=== PATIENT | female | born 1995 | race Caucasian/White ===

== ENCOUNTER 2017-03-27 15:34 | Inpatient (IN) | payer OTHER, MEDICAID ==
[2017-03-27] MEDS ORDERED: Sodium Chloride 0.9% 10 ML Syringe FLUSH PRN (15:55)
[2017-03-27] MEDS ORDERED: Oxytocin/Lactated Ringers 10 UNIT/1,000 ML BAG IV SCH ×2 (16:00)
[2017-03-27] MEDS: Lactated Ringers 1,000 ML IV SCH ×6 (16:26→22:52)
--- NOTE | 2017-03-27 16:57 | PCM.LDHP ---
L&D History of Present Illness - General Date of Service: 03/27/17 Admit Problem/Dx: Patient Status Order with Admit Dx/Problem 03/27/17 15:55 Patient Status [ADT] Routine Admission Diagnosis/Problem Admission Diagnosis/Problem Source of Information: Patient History Limitations: Reports: No Limitations - History of Present Illness Introduction:: Patient is a 21 y/o at 37 0/7 wks who presented to clinic earlier today for concerns of possible leakage. Amnisure done in clinic today was positive. Has been having some on and off again contractions. Otherwise doing well. Last notable for PPROM with eventual delivery around 32 weeks. - Related Data Allergies/Adverse Reactions: Allergies Allergy/AdvReac Type Severity Reaction Status Date / Time adhesive Allergy Blisters Verified 03/07/17 18:37 BANDAIDES Allergy Severe Burning Uncoded 03/07/17 18:37 Home Medications: Home Meds Vit 90/Iron Fum/Folic [ Formula] 1 each PO DAILY 10/25/14 [ History] Citalopram [Celexa] 20 mg PO DAILY 03/27/17 [History] Past Medical History APPLICATIONS SUPPORT LEAD History: Reports: : 2 Para: 1 LMP (Approximate): Psychiatric History: Reports: Anxiety, Depression - Past Surgical History HEENT Surgical History: Reports: Oral Surgery (tooth extraction) Social & Family History - Tobacco Use Smoking Status *Q: Never Smoker - Alcohol Use Alcohol Use History: No - Recreational Drug Use Recreational Drug Use: Yes Recreational Drug Type: Reports: Marijuana/Hashish (through Feb 2014) H&P Review of Systems - Review of Systems: Review Of Systems: See Below General: Reports: No Symptoms Pulmonary: Reports: No Symptoms Cardiovascular: Reports: No Symptoms Gastrointestinal: Reports: No Symptoms Genitourinary: Reports: No Symptoms Musculoskeletal: Reports: No Symptoms L&D Exam - Exam Exam: See Below - Vital Signs Weight: 130 kg - OB Specific Contraction Intensity: Mild to Moderate Movement: Active Heart Tones: Present Heart Tones per Min: 140 Heart Rate (FHR) Variability: Moderate (6-25 bmp) Presentation: Vertex - Maguire Score Maguire Score Cervix Position: Anterior Maguire Score Consistency: Soft Maguire Score Effacement: >80% Maguire Score Dilation: 1-2 cm Maguire Score 's Station: -3 Maguire Score Total: 8 - Exam General: Alert, Oriented, Cooperative Lungs: Clear to Auscultation, Normal Respiratory Effort Cardiovascular: Regular Rate, Regular Rhythm GI/Abdominal Exam: Soft, Non-Tender Genitourinary: Normal external exam Extremities: Normal Inspection Skin: Warm, Dry, Intact - Patient Data Lab Results Last 24 hrs: Laboratory Results - last 24 hr 03/27/17 Range/Units 16:30 WBC 9.53 (3.98-10.04) K/mm3 RBC 4.40 (3.98-5.22) M/mm3 Hgb 13.4 (11.2-15.7) gm/L Hct 39.2 (34.1-44.9) % MCV 89.1 (79.4-94.8) fl MCH 30.5 (25.6-32.2) pg MCHC 34.2 (32.2-35.5) g/dl RDW Std Deviation 42.4 (36.4-46.3) fL Plt Count 191 (182-369) K/mm3 MPV 12.3 (9.4-12.3) fl Neut % (Auto) 62.2 (34.0-71.1) % Lymph % (Auto) 29.4 (19.3-51.7) % [place] % (Auto) 7.5 (4.7-12.5) % Eos % (Auto) 0.6 L (0.7-5.8) Baso % (Auto) 0.2 (0.1-1.2) % Neut # (Auto) 5.93 (1.56-6.13) K/mm3 Lymph # (Auto) 2.80 (1.18-3.74) K/mm3 [place] # (Auto) 0.71 H (0.24-0.36) K/mm3 Eos # (Auto) 0.06 (0.04-0.36) K/mm3 Baso # (Auto) 0.02 (0.01-0.08) K/mm3 Result Diagrams: 03/27/17 16:30 - Problem List (1) 37 weeks gestation of SNOMED Code(s): 41858993 ICD Code: Z3A.37 - 37 WEEKS GESTATION OF Status: Acute Current Visit: Yes (2) BMI 50.0-59.9, adult SNOMED Code(s): 702443194 ICD Code: Z68.43 - BODY MASS INDEX (BMI) 50-59.9 , ADULT Status: Acute Current Visit: Yes (3) PROM (premature rupture of membranes) SNOMED Code(s): 83601574 ICD Code: O42.90 - JEF ROM, 7TH0 BETW RUPT & ONST LABR, UNSP WEEKS OF GEST Status: Acute Current Visit: Yes Qualifiers: PROM onset of labor timing: unspecified duration between rupture of membranes and onset of labor PROM gestational age: full term Qualified Code( s): O42.92 - Full-term premature rupture of membranes, unspecified as to length of time between rupture and onset of labor (4) Rubella non-immune status, antepartum SNOMED Code(s): 252975881 ICD Code: O99.89 - OTH DISEASES AND CONDITIONS COMPL PREG/CHLDBRTH; Z28.3 - UNDERIMMUNIZATION STATUS Status: Acute Current Visit: Yes Problem List Initiated/Reviewed/Updated: Yes Orders Last 24hrs: Active Orders 24 hr Category Date Time Status Patient Status [ADT] Routine ADT 03/27/17 15:55 Active Activity as Tolerated [RC] PFP Care 03/27/17 15:55 Active Communication Order [RC] ASDIRECTED Care 03/27/17 15:55 Active Heart Tones [RC] ASDIRECTED Care 03/27/17 15:56 Active Notify Provider [RC] PFP Care 03/27/17 15:55 Active Notify Provider [RC] PRN Care 03/27/17 15:55 Active Peripheral IV Care [RC] . DIRECTED Care 03/27/17 15:56 Active Vital Signs [RC] PER UNIT ROUTINE Care 03/27/17 15:55 Active Regular Diet [DIET] Diet 03/27/17 Dinner Active TYPE AND SCREEN [BBK] Routine Lab 03/27/17 16:30 Received Lactated Ringers [Ringers, Lactated] 1,000 ml Med 03/27/17 16:00 Active IV ASDIRECTED Oxytocin/Lactated Ringers [Pitocin in LR 10 Units/1,000 Med 03/27/17 16:00 Active ML] 10 unit in 1,000 ml IV .CONTINUOUS Oxytocin/Lactated Ringers [Pitocin in LR 10 Units/1,000 Med 03/27/17 16:00 Active ML] 10 unit in 1,000 ml IV TITRATE Sodium Chloride 0.9% [Saline Flush] Med 03/27/17 15:55 Active 10 ml FLUSH ASDIRECTED PRN Electronic Heart Tones Ext w TOCO [WOMSER] Oth 03/27/17 15:55 Ordered Routine Electronic Heart Tones Internal [WOMSER] Per Unit Oth 03/27/17 15:55 Ordered Routine Peripheral IV Insertion Adult [OM.PC] Routine Oth 03/27/17 15:55 Ordered Resuscitation Status Routine Resus Stat 03/27/17 15:55 Ordered Medication Orders Lactated Ringer's (Ringers, Lactated) 1,000 mls @ 100 mls/hr IV ASDIRECTED JEANETH Last Admin: 03/27/17 16:26 Dose: 100 mls/hr Oxytocin/Lactated Ringer's (Pitocin In Lr 10 Units/1,000 Ml) 10 unit in 1,000 mls @ 500 mls/hr IV .CONTINUOUS JEANETH Oxytocin/Lactated Ringer's (Pitocin In Lr 10 Units/1,000 Ml) 10 unit in 1,000 mls @ 12 mls/hr IV TITRATE JEANETH; 2 MUNITS/MIN PRN Reason: Protocol Last Admin: 03/27/17 16:27 Dose: 2 munits/min, 12 mls/hr Sodium Chloride (Saline Flush) 10 ml FLUSH ASDIRECTED PRN PRN Reason: Keep Vein Open Assessment/Plan Comment:: 21 y/o at 37 0/7 wks who presents with PROM * CBC and T&S * GBS negative, no need for antibiotics * Pitocin for augmentation * Pain management per patient preference * Anticipate * MMR after delivery
[2017-03-27] MEDS ORDERED: diphenhydrAMINE 50 MG/ML SDV IVPUSH PRN (17:49)
[2017-03-27] MEDS ORDERED: fentaNYL 100 MCG/2 ML SDV EPIDUR PRN (17:49)
--- NOTE | 2017-03-27 17:55 | PCM.PREANE ---
Preanesthetic Assessment - Anesthesia/Transfusion/Family Hx Anesthesia History: No Prior Anesthesia Family History of Anesthesia Reaction: No Transfusion History: No Prior Transfusion(s) - Review of Systems General: No Symptoms Pulmonary: No Symptoms Cardiovascular: No Symptoms Gastrointestinal: No Symptoms Neurological: No Symptoms Other: Reports: Depression, Anxiety - Physical Assessment Pulse: 80 O2 Sat by Pulse Oximetry: 98 Respiratory Rate: 20 Blood Pressure: 145/84 Temperature: 98.7 F Height: 5 ft 1 in Weight: 130 kg ASA Class: 2 Mental Status: Alert & Oriented x3 Airway Class: Mallampati = 2 Dentition: Reports: Normal Dentition Thyro-Mental Finger Breadths: 3 Mouth Opening Finger Breadths: 3 ROM/Head Extension: Full Lungs: Clear to Auscultation, Normal Respiratory Effort Cardiovascular: Regular Rate, Regular Rhythm - Lab Values: Laboratory Last Values WBC 9.53 K/mm3 (3.98-10.04) 03/27/17 16:30 RBC 4.40 M/mm3 (3.98-5.22) 03/27/17 16:30 Hgb 13.4 gm/L (11.2-15.7) 03/27/17 16:30 Hct 39.2 % (34.1-44.9) 03/27/17 16:30 MCV 89.1 fl (79.4-94.8) 03/27/17 16:30 MCH 30.5 pg (25.6-32.2) 03/27/17 16:30 MCHC 34.2 g/dl (32.2-35.5) 03/27/17 16:30 RDW Std Deviation 42.4 fL (36.4-46.3) 03/27/17 16:30 Plt Count 191 K/mm3 (182-369) 03/27/17 16:30 MPV 12.3 fl (9.4-12.3) 03/27/17 16:30 Neut % (Auto) 62.2 % (34.0-71.1) 03/27/17 16:30 Lymph % (Auto) 29.4 % (19.3-51.7) 03/27/17 16:30 [place] % (Auto) 7.5 % (4.7-12.5) 03/27/17 16:30 Eos % (Auto) 0.6 (0.7-5.8) L 03/27/17 16:30 Baso % (Auto) 0.2 % (0.1-1.2) 03/27/17 16:30 Neut # (Auto) 5.93 K/mm3 (1.56-6.13) 03/27/17 16:30 Lymph # (Auto) 2.80 K/mm3 (1.18-3.74) 03/27/17 16:30 [place] # (Auto) 0.71 K/mm3 (0.24-0.36) H 03/27/17 16:30 Eos # (Auto) 0.06 K/mm3 (0.04-0.36) 03/27/17 16:30 Baso # (Auto) 0.02 K/mm3 (0.01-0.08) 03/27/17 16:30 - Allergies Allergies/Adverse Reactions: Allergies Allergy/AdvReac Type Severity Reaction Status Date / Time adhesive Allergy Blisters Verified 03/07/17 18:37 BANDAIDES Allergy Severe Burning Uncoded 03/07/17 18:37 - Blood Blood Available: Yes - Acknowledgements Anesthesia Type Planned: Epidural Pt an Appropriate Candidate for the Planned Anesthesia: Yes Alternatives and Risks of Anesthesia Discussed w Pt/Guardian: Yes Pt/Guardian Understands and Agrees with Anesthesia Plan: Yes PreAnesthesia Questionnaire - Past Health History Medical/Surgical History: Denies Medical/Surgical History Cardiovascular History: Reports: None Respiratory History: Reports: None Gastrointestinal History: Reports: GERD (ith preg) Psychiatric History: Reports: Anxiety, Depression - History Comment History Comment: celexa- but hasn't had in 1-2 weeks - SUBSTANCE USE Smoking Status *Q: Former Smoker (quit 3 years ago) Tobacco Use Within Last Twelve Months: No Second Hand Smoke Exposure: Yes Days Per Week of Alcohol Use: 0 Recreational Drug Use History: Yes Recreational Drug Type: Reports: Marijuana/Hashish (in past through Feb 2014) - HOME MEDS Home Medications: Home Meds Vit 90/Iron Fum/Folic [ Formula] 1 each PO 10/25/14 [History] - CURRENT (IN HOUSE) MEDS Current Meds: Current Medications Diphenhydramine HCl (Benadryl) 25 mg IVPUSH Q6H PRN PRN Reason: pruritis Ephedrine Sulfate (Ephedrine Sulfate) 5 mg IVPUSH ASDIRECTED PRN PRN Reason: Hypotension Fentanyl (Sublimaze) 100 mcg EPIDUR Q3H PRN PRN Reason: Pain Fentanyl/Bupivacaine HCl (Fentanyl/Bupivacaine/Ns 2 Mcg-0.125% 100 Ml) 100 ml EPIDUR ASDIRECTED JEANETH Lactated Ringer's (Ringers, Lactated) 1,000 mls @ 100 mls/hr IV ASDIRECTED JEANETH Last Infusion: 03/27/17 17:14 Dose: 100 mls/hr Oxytocin/Lactated Ringer's (Pitocin In Lr 10 Units/1,000 Ml) 10 unit in 1,000 mls @ 500 mls/hr IV .CONTINUOUS JEANETH Oxytocin/Lactated Ringer's (Pitocin In Lr 10 Units/1,000 Ml) 10 unit in 1,000 mls @ 12 mls/hr IV TITRATE JEANETH; 2 MUNITS/MIN PRN Reason: Protocol Last Titration: 03/27/17 17:19 Dose: 2 munits/min, 12 mls/hr Sodium Chloride (Saline Flush) 10 ml FLUSH ASDIRECTED PRN PRN Reason: Keep Vein Open
[2017-03-27] MEDS ORDERED: Bupivacaine/fentaNYL/NS 100 ML Bag EPIDUR SCH (18:00)
[2017-03-27] MEDS: ePHEDrine 50 MG/ML SDV IVPUSH PRN ×2 (20:25→22:56)
--- NOTE | 2017-03-27 20:45 | PCM.PNLD ---
Labor Progress Note - VS & Meds Vital Signs: Last Vital Signs Temp 37.1 C 03/27/17 17:56 Pulse 80 03/27/17 19:01 Resp 20 03/27/17 17:56 BP 91/65 03/27/17 19:01 Pulse Ox 98 03/27/17 17:56 Active Medications: Current Medications Diphenhydramine HCl (Benadryl) 25 mg IVPUSH Q6H PRN PRN Reason: pruritis Ephedrine Sulfate (Ephedrine Sulfate) 5 mg IVPUSH ASDIRECTED PRN PRN Reason: Hypotension Last Admin: 03/27/17 20:25 Dose: 5 mg Fentanyl (Sublimaze) 100 mcg EPIDUR Q3H PRN PRN Reason: Pain Last Admin: 03/27/17 18:35 Dose: 100 mcg Fentanyl/Bupivacaine HCl (Fentanyl/Bupivacaine/Ns 2 Mcg-0.125% 100 Ml) 100 ml EPIDUR ASDIRECTED JEANETH Last Admin: 03/27/17 18:35 Dose: 100 ml Lactated Ringer's (Ringers, Lactated) 1,000 mls @ 100 mls/hr IV ASDIRECTED JEANETH Last Admin: 03/27/17 20:19 Dose: 250 mls/hr Oxytocin/Lactated Ringer's (Pitocin In Lr 10 Units/1,000 Ml) 10 unit in 1,000 mls @ 500 mls/hr IV .CONTINUOUS JEANETH Oxytocin/Lactated Ringer's (Pitocin In Lr 10 Units/1,000 Ml) 10 unit in 1,000 mls @ 12 mls/hr IV TITRATE JEANETH; 2 MUNITS/MIN PRN Reason: Protocol Last Titration: 03/27/17 19:50 Dose: 0 munits/min, 0 mls/hr Sodium Chloride (Saline Flush) 10 ml FLUSH ASDIRECTED PRN PRN Reason: Keep Vein Open - Uterine Contractions Uterine Monitoring Mode: External [place] Contraction Intensity: Moderate Uterine Resting Tone: Soft - Monitoring Monitor Mode: External Ultrasound Heart Rate (FHR) Baseline: 145 Heart Rate (FHR) Variability: Moderate (6-25 bmp) Accelerations: Present, 10x10 (=/<32 wks) Decelerations: Late, Variable, Intermittent (<50% x 20 min) Strip Review: Category II - Vaginal Exam Dilation (cm): 3 Effacement (Percent): 80 Station: -3 Cervical Position: Anterior - Labor Progress (Free Text) Labor Progress: Patient had been on pitocin of 4. Just received her epidural and having some late/variable decelerations and periods of minimal variability. Pitocin discontinued. Exam done and shows a forebag which is ruptured with 4 x 4 cm clot released. IUPC placed. Patient's BP's noted to be a low normal. Ephedrine given. Resolution of decelerations occurred with these interventions.
--- NOTE | 2017-03-28 02:03 | PCM.DEL ---
L & D Note - General Info Date of Service: 03/28/17 - Delivery Note Labor: Augmented by Oxytocin Delivery Outcome: Livebirth Delivery Method: Spontaneous Vaginal Delivery-Single Delivery Mode: Spontaneous Presentation: Left Occiput Anterior (BRENDA) Nuchal Cord: None Anesthesia Type: Epidural Amniotic Fluid Description: Clear Episiotomy Type: None Laceration: None Placenta: Intact, Spontaneous Cord: 3 Vessels Estimated Blood Loss: 200 : Bulb Syringe, Stimulated, Warmed, [place] Used, Warmer Used Score 1 min: 7 Score 5 min: 8 Delivery Comments (Free Text/Narrative):: Patient found to be complete and began pushing. With maternal pushing effort head delivered from an BRENDA presentation. No nuchal cord present. With gentle downward traction the shoulders and body delivered. Infant placed on maternal abdomen. Cord clamped and cut. Cord blood obtained. Placenta allowed time to separate and then expelled. Inspection of the perineum showed no lacerations - Patient Data Vitals - Most Recent: Last Vital Signs Temp 37.1 C 03/27/17 17:56 Pulse 80 03/27/17 19:01 Resp 20 03/27/17 17:56 BP 91/65 03/27/17 19:01 Pulse Ox 98 03/27/17 17:56 Weight - Most Recent: 130 kg Lab Results Last 24 Hours: Laboratory Results - last 24 hr 03/27/17 03/27/17 Range/Units 16:30 16:30 WBC 9.53 (3.98-10.04) K/mm3 RBC 4.40 (3.98-5.22) M/mm3 Hgb 13.4 (11.2-15.7) gm/L Hct 39.2 (34.1-44.9) % MCV 89.1 (79.4-94.8) fl MCH 30.5 (25.6-32.2) pg MCHC 34.2 (32.2-35.5) g/dl RDW Std Deviation 42.4 (36.4-46.3) fL Plt Count 191 (182-369) K/mm3 MPV 12.3 (9.4-12.3) fl Neut % (Auto) 62.2 (34.0-71.1) % Lymph % (Auto) 29.4 (19.3-51.7) % [place] % (Auto) 7.5 (4.7-12.5) % Eos % (Auto) 0.6 L (0.7-5.8) Baso % (Auto) 0.2 (0.1-1.2) % Neut # (Auto) 5.93 (1.56-6.13) K/mm3 Lymph # (Auto) 2.80 (1.18-3.74) K/mm3 [place] # (Auto) 0.71 H (0.24-0.36) K/mm3 Eos # (Auto) 0.06 (0.04-0.36) K/mm3 Baso # (Auto) 0.02 (0.01-0.08) K/mm3 Blood Type A POSITIVE Gel Antibody Screen Negative Med Orders - Current: Current Medications Diphenhydramine HCl (Benadryl) 25 mg IVPUSH Q6H PRN PRN Reason: pruritis Ephedrine Sulfate (Ephedrine Sulfate) 5 mg IVPUSH ASDIRECTED PRN PRN Reason: Hypotension Last Admin: 03/27/17 22:56 Dose: 5 mg Fentanyl (Sublimaze) 100 mcg EPIDUR Q3H PRN PRN Reason: Pain Last Admin: 03/27/17 18:35 Dose: 100 mcg Fentanyl/Bupivacaine HCl (Fentanyl/Bupivacaine/Ns 2 Mcg-0.125% 100 Ml) 100 ml EPIDUR ASDIRECTED JEANETH Last Admin: 03/27/17 18:35 Dose: 100 ml Lactated Ringer's (Ringers, Lactated) 1,000 mls @ 100 mls/hr IV ASDIRECTED JEANETH Last Admin: 03/27/17 22:52 Dose: 250 mls/hr Oxytocin/Lactated Ringer's (Pitocin In Lr 10 Units/1,000 Ml) 10 unit in 1,000 mls @ 500 mls/hr IV .CONTINUOUS JEANETH Oxytocin/Lactated Ringer's (Pitocin In Lr 10 Units/1,000 Ml) 10 unit in 1,000 mls @ 12 mls/hr IV TITRATE JEANETH; 2 MUNITS/MIN PRN Reason: Protocol Last Titration: 03/27/17 21:58 Dose: 1 munits/min, 6 mls/hr Sodium Chloride (Saline Flush) 10 ml FLUSH ASDIRECTED PRN PRN Reason: Keep Vein Open - Problem List & Annotations (1) 37 weeks gestation of SNOMED Code(s): 59089130 Code(s): Z3A.37 - 37 WEEKS GESTATION OF Status: Acute Current Visit: Yes (2) BMI 50.0-59.9, adult SNOMED Code(s): 866940386 Code(s): Z68.43 - BODY MASS INDEX (BMI) 50-59.9 , ADULT Status: Acute Current Visit: Yes (3) PROM (premature rupture of membranes) SNOMED Code(s): 75170129 Code(s): O42.90 - JEF ROM, 7TH0 BETW RUPT & ONST LABR, UNSP WEEKS OF GEST Status: Acute Current Visit: Yes Qualifiers: PROM onset of labor timing: unspecified duration between rupture of membranes and onset of labor PROM gestational age: full term Qualified Code( s): O42.92 - Full-term premature rupture of membranes, unspecified as to length of time between rupture and onset of labor (4) Rubella non-immune status, antepartum SNOMED Code(s): 378716855 Code(s): O99.89 - OTH DISEASES AND CONDITIONS COMPL PREG/CHLDBRTH; Z28.3 - UNDERIMMUNIZATION STATUS Status: Acute Current Visit: Yes (5) Vaginal delivery SNOMED Code(s): 537826138 Code(s): O80 - ENCOUNTER FOR FULL-TERM UNCOMPLICATED DELIVERY Status: Acute Current Visit: Yes - Problem List Review Problem List Initiated/Reviewed/Updated: Yes - My Orders Last 24 Hours: My Active Orders 03/27/17 15:55 Patient Status [ADT] Routine Activity as Tolerated [RC] PFP Communication Order [RC] ASDIRECTED Notify Provider [RC] PFP Notify Provider [RC] PRN Vital Signs [RC] PER UNIT ROUTINE Sodium Chloride 0.9% [Saline Flush] 10 ml FLUSH ASDIRECTED PRN Electronic Heart Tones Ext w TOCO [WOMSER] Routine Electronic Heart Tones Internal [WOMSER] Per Unit Routine Peripheral IV Insertion Adult [OM.PC] Routine Resuscitation Status Routine 03/27/17 15:56 Heart Tones [RC] ASDIRECTED Peripheral IV Care [RC] . DIRECTED 03/27/17 16:00 Lactated Ringers [Ringers, Lactated] 1,000 ml IV ASDIRECTED Oxytocin/Lactated Ringers [Pitocin in LR 10 Units/1,000 ML] 10 unit in 1,000 ml IV .CONTINUOUS Oxytocin/Lactated Ringers [Pitocin in LR 10 Units/1,000 ML] 10 unit in 1,000 ml IV TITRATE 03/27/ Dinner Regular Diet [DIET] - Assessment Assessment:: 21 y/o G2 now P1102 PPD#0 from at 37 1/7 wks - Plan Plan:: * Routine cares * Encourage breast feeding * Discharge home in 1-2 days * MMR prior to discharge
[2017-03-28] MEDS ORDERED: Benzocaine/Menthol 20%-0.5% Spray 56 GM Canister TOP PRN (03:09)
[2017-03-28] MEDS ORDERED: Witch Hazel Medicated Pads 100/Jar TOP PRN (03:09)
[2017-03-28] MEDS ORDERED: Docusate Sodium 100 MG Cap PO PRN (03:09)
[2017-03-28] MEDS ORDERED: Lanolin 100% Cream 7 GM Tube TOP PRN (03:09)
[2017-03-28] MEDS ORDERED: Acetaminophen 325 MG Tab PO PRN (03:09)
[2017-03-28] MEDS: Ibuprofen 600 MG Tab PO PRN ×3 (04:32→18:50)
--- NOTE | 2017-03-28 07:41 | PCM48HPAN ---
Post Anesthesia Note - EVALUATION WITHIN 48HRS OF ANESTHETIC Vital Signs in Normal Range: Yes Patient Participated in Evaluation: Yes Respiratory Function Stable: Yes Airway Patent: Yes Cardiovascular Function Stable: Yes Hydration Status Stable: Yes Pain Control Satisfactory: Yes Nausea and Vomiting Control Satisfactory: Yes Mental Status Recovered: Yes
[2017-03-28] MEDS ORDERED: Bupivacaine 0.25% 10 ML SDV ONE (22:22)
[2017-03-29 04:05] VITALS: BP 122/62
--- NOTE | 2017-03-29 07:37 | PCM.PNPP ---
- General Info Date of Service: 03/29/17 Functional Status: Reports: Pain Controlled, Tolerating Diet, Ambulating, Urinating - Review of Systems General: Reports: No Symptoms Pulmonary: Reports: No Symptoms Cardiovascular: Reports: No Symptoms Gastrointestinal: Reports: No Symptoms Genitourinary: Reports: No Symptoms Musculoskeletal: Reports: No Symptoms - Patient Data Vital Signs - Most Recent: Last Vital Signs Temp 37.1 C 03/28/17 20:17 Pulse 85 03/29/17 03:10 Resp 14 03/29/17 03:10 BP 122/62 03/29/17 03:10 Pulse Ox 96 03/29/17 03:10 Weight - Most Recent: 130 kg I&O - Last 24 Hours: Intake & Output 03/28/17 03/29/17 03/29/17 22:59 06:59 14:59 Intake Total 120 Balance 120 Med Orders - Current: Current Medications Acetaminophen (Tylenol) 650 mg PO Q4H PRN PRN Reason: mild pain or fever Last Admin: 03/28/17 20:08 Dose: 650 mg Benzocaine/Menthol ([employer]) 0 gm TOP ASDIRECTED PRN PRN Reason: Perineal Comfort Measure Last Admin: 03/28/17 04:31 Dose: 1 canister Docusate Sodium (Colace) 100 mg PO BID PRN PRN Reason: Constipation Emollient Ointment (Lansinoh Hpa) 0 gm TOP ASDIRECTED PRN PRN Reason: Sore Nipples Ibuprofen (Motrin) 600 mg PO Q6H PRN PRN Reason: Mild pain or fever Last Admin: 03/28/17 18:50 Dose: 600 mg Measles/Mumps/Rubella Vaccine Live (M-M-R Ii Vaccine) 0.5 ml SUBCUT .ONCE ONE Stop: 03/29/17 10:01 Witch Joi (Tucks) 1 pad TOP ASDIRECTED PRN PRN Reason: Hemorrhoid pain Last Admin: 03/28/17 04:31 Dose: 1 tub Discontinued Medications Bupivacaine HCl (Sensorcaine-Mpf 0.25%) 10 ml .ROUTE .STK-MED ONE Stop: 03/28/17 22:23 Diphenhydramine HCl (Benadryl) 25 mg IVPUSH Q6H PRN PRN Reason: pruritis Ephedrine Sulfate (Ephedrine Sulfate) 5 mg IVPUSH ASDIRECTED PRN PRN Reason: Hypotension Last Admin: 03/27/17 22:56 Dose: 5 mg Fentanyl (Sublimaze) 100 mcg EPIDUR Q3H PRN PRN Reason: Pain Last Admin: 03/27/17 18:35 Dose: 100 mcg Fentanyl/Bupivacaine HCl (Fentanyl/Bupivacaine/Ns 2 Mcg-0.125% 100 Ml) 100 ml EPIDUR ASDIRECTED JEANETH Last Admin: 03/27/17 18:35 Dose: 100 ml Lactated Ringer's (Ringers, Lactated) 1,000 mls @ 100 mls/hr IV ASDIRECTED JEANETH Last Admin: 03/27/17 22:52 Dose: 250 mls/hr Oxytocin/Lactated Ringer's (Pitocin In Lr 10 Units/1,000 Ml) 10 unit in 1,000 mls @ 500 mls/hr IV .CONTINUOUS JEANETH Oxytocin/Lactated Ringer's (Pitocin In Lr 10 Units/1,000 Ml) 10 unit in 1,000 mls @ 12 mls/hr IV TITRATE JEANETH; 2 MUNITS/MIN PRN Reason: Protocol Last Titration: 03/28/17 03:15 Dose: 250 mls/hr Sodium Chloride (Saline Flush) 10 ml FLUSH ASDIRECTED PRN PRN Reason: Keep Vein Open - Interaction Infant Disposition, : [place] in Room with Family Infant Interaction: Holding Infant Feeding: Attempted ; Nursed Fair/Poor Support Person: Mother - Recovery Exam Fundal Tone: Firm Fundal Level: At Umbilicus Fundal Placement: Right Lochia Amount: Small Lochia Color: Rubra/Red Perineum Description: Intact, Minimal Bruising/Swelling Episiotomy/Laceration: None Bladder Status: Voiding Urinary Elimination: Voided - Exam General: Alert, Oriented, Cooperative GI/Abdominal Exam: Soft, Non-Tender Extremities: Normal Inspection, Pedal Edema - Problem List & Annotations (1) 37 weeks gestation of SNOMED Code(s): 33805084 Code(s): Z3A.37 - 37 WEEKS GESTATION OF Status: Acute (2) BMI 50.0-59.9, adult SNOMED Code(s): 948026590 Code(s): Z68.43 - BODY MASS INDEX (BMI) 50-59.9 , ADULT Status: Acute (3) PROM (premature rupture of membranes) SNOMED Code(s): 02135499 Code(s): O42.90 - JEF ROM, 7TH0 BETW RUPT & ONST LABR, UNSP WEEKS OF GEST Status: Acute Qualifiers: PROM onset of labor timing: unspecified duration between rupture of membranes and onset of labor PROM gestational age: full term Qualified Code( s): O42.92 - Full-term premature rupture of membranes, unspecified as to length of time between rupture and onset of labor (4) Rubella non-immune status, antepartum SNOMED Code(s): 106227592 Code(s): O99.89 - OTH DISEASES AND CONDITIONS COMPL PREG/CHLDBRTH; Z28.3 - UNDERIMMUNIZATION STATUS Status: Acute (5) Vaginal delivery SNOMED Code(s): 828329305 Code(s): O80 - ENCOUNTER FOR FULL-TERM UNCOMPLICATED DELIVERY Status: Acute - Problem List Review Problem List Initiated/Reviewed/Updated: Yes - My Orders Last 24 Hours: My Active Orders 03/28/17 Breakfast Regular Diet [DIET] 03/29/17 03:09 Heat Therapy [OM.PC] PRN 03/29/17 10:00 Measles, Mumps & Rubella [M-M-R II Vaccine] 0.5 ml SUBCUT .ONCE ONE - Assessment Assessment:: 21 y/o G2 now P1102 PPD#1 from at 37 1/7 wks - Plan Plan:: * Routine cares * Encourage breast feeding * Discharge home today * MMR prior to discharge
--- NOTE | 2017-03-29 07:41 | PCM.DCSUM1 ---
Discharge Summary - Discharge Data Discharge Date: 03/29/17 Discharge Disposition: Home, Self-Care 01 Condition: Good - Discharge Diagnosis/Problem(s) (1) 37 weeks gestation of SNOMED Code(s): 58858688 ICD Code: Z3A.37 - 37 WEEKS GESTATION OF Status: Acute (2) BMI 50.0-59.9, adult SNOMED Code(s): 367370510 ICD Code: Z68.43 - BODY MASS INDEX (BMI) 50-59.9 , ADULT Status: Acute (3) PROM (premature rupture of membranes) SNOMED Code(s): 37689270 ICD Code: O42.90 - JEF ROM, 7TH0 BETW RUPT & ONST LABR, UNSP WEEKS OF GEST Status: Acute Qualifiers: PROM onset of labor timing: unspecified duration between rupture of membranes and onset of labor PROM gestational age: full term Qualified Code( s): O42.92 - Full-term premature rupture of membranes, unspecified as to length of time between rupture and onset of labor (4) Rubella non-immune status, antepartum SNOMED Code(s): 653457416 ICD Code: O99.89 - OTH DISEASES AND CONDITIONS COMPL PREG/CHLDBRTH; Z28.3 - UNDERIMMUNIZATION STATUS Status: Acute (5) Vaginal delivery SNOMED Code(s): 684439004 ICD Code: O80 - ENCOUNTER FOR FULL-TERM UNCOMPLICATED DELIVERY Status: Acute - Patient Summary/Data Complications: None Consults: None Recommended Follow-up Testing/Procedures: Follow up in 2-6 weeks for check Hospital Course: Patient is a 21 y/o at 37 0/7 wks who presented with PROM. She was augmented with pitocin and progressed quickly to complete dilation. She underwent an uncomplicated . See delivery note. she did well and was discharged home on PPD#1 - Patient Instructions Diet: Regular Diet as Tolerated Activity: As Tolerated Activity, Other: Pelvic Rest for 6 weeks Driving: Do Not Drive Showering/Bathing: May Shower Showering/Bathing, Other: May Bathe Notify Provider of: Fever, Increased Pain, Swelling and Redness, Drainage, Nausea and/or Vomiting - Discharge Plan Home Medications: Home Meds Vit 90/Iron Fum/Folic [ Formula] 1 each PO DAILY 10/25/14 [ History] Citalopram [Celexa] 20 mg PO DAILY 03/27/17 [History] Docusate Sodium [Colace] 100 mg PO BID PRN cap 03/29/17 [Rx] Ibuprofen [IJD: Ibuprofen] 600 mg PO Q6H PRN tablet 03/29/17 [Rx] Patient Handouts: Home Care Instructions for Mom Referrals: Johanna Ballesteros MD [Primary Care Provider] - (2-6 weeks for check ) - Discharge Summary/Plan Comment DC Time >30 min.: No - Patient Data Vitals - Most Recent: Last Vital Signs Temp 37.1 C 03/28/17 20: Pulse 85 03/29/17 03:10 Resp 14 03/29/17 03:10 BP 122/62 03/29/17 03:10 Pulse Ox 96 03/29/17 03:10 Weight - Most Recent: 130 kg I&O - Last 24 hours: Intake & Output 03/28/17 03/29/17 03/29/17 22:59 06:59 14:59 Intake Total 120 Balance 120 Med Orders - Current: Current Medications Acetaminophen (Tylenol) 650 mg PO Q4H PRN PRN Reason: mild pain or fever Last Admin: 03/28/17 20:08 Dose: 650 mg Benzocaine/Menthol (Dermoplast Pain Relief Roper) 0 gm TOP ASDIRECTED PRN PRN Reason: Perineal Comfort Measure Last Admin: 03/28/17 04:31 Dose: 1 canister Docusate Sodium (Colace) 100 mg PO BID PRN PRN Reason: Constipation Emollient Ointment (Lansinoh Hpa) 0 gm TOP ASDIRECTED PRN PRN Reason: Sore Nipples Ibuprofen (Motrin) 600 mg PO Q6H PRN PRN Reason: Mild pain or fever Last Admin: 03/28/17 18:50 Dose: 600 mg Measles/Mumps/Rubella Vaccine Live (M-M-R Ii Vaccine) 0.5 ml SUBCUT .ONCE ONE Stop: 03/29/17 10:01 Witch Joi (Tucks) 1 pad TOP ASDIRECTED PRN PRN Reason: Hemorrhoid pain Last Admin: 03/28/17 04:31 Dose: 1 tub Discontinued Medications Bupivacaine HCl (Sensorcaine-Mpf 0.25%) 10 ml .ROUTE .STK-MED ONE Stop: 03/28/17 22:23 Diphenhydramine HCl (Benadryl) 25 mg IVPUSH Q6H PRN PRN Reason: pruritis Ephedrine Sulfate (Ephedrine Sulfate) 5 mg IVPUSH ASDIRECTED PRN PRN Reason: Hypotension Last Admin: 03/27/17 22:56 Dose: 5 mg Fentanyl (Sublimaze) 100 mcg EPIDUR Q3H PRN PRN Reason: Pain Last Admin: 03/27/17 18:35 Dose: 100 mcg Fentanyl/Bupivacaine HCl (Fentanyl/Bupivacaine/Ns 2 Mcg-0.125% 100 Ml) 100 ml EPIDUR ASDIRECTED JEANETH Last Admin: 03/27/17 18:35 Dose: 100 ml Lactated Ringer's (Ringers, Lactated) 1,000 mls @ 100 mls/hr IV ASDIRECTED JEANETH Last Admin: 03/27/17 22:52 Dose: 250 mls/hr Oxytocin/Lactated Ringer's (Pitocin In Lr 10 Units/1,000 Ml) 10 unit in 1,000 mls @ 500 mls/hr IV .CONTINUOUS JEANETH Oxytocin/Lactated Ringer's (Pitocin In Lr 10 Units/1,000 Ml) 10 unit in 1,000 mls @ 12 mls/hr IV TITRATE JEANETH; 2 MUNITS/MIN PRN Reason: Protocol Last Titration: 03/28/17 03:15 Dose: 250 mls/hr Sodium Chloride (Saline Flush) 10 ml FLUSH ASDIRECTED PRN PRN Reason: Keep Vein Open *Q Meaningful Use (DIS) - VTE *Q VTE Criteria *Q: - Stroke *Q Stroke Criteria *Q: - AMI *Q AMI Criteria *Q:
[2017-03-29] MEDS ORDERED: Measles, Mumps & Rubella Vaccine 0.5 ML SDV SUBCUT ONE (10:00)
== END 2017-03-29 09:50 | disposition home or self-care (01) | DRG 775 ==
LOC: JD.OBCHECK 15:34 → JD.OB 15:34 → JD.OBCHECK 15:54 → JD.OB 15:55 → OBSVTOIN 03-28 01:51 → JD.OB 03-28 01:51
PROVIDERS: ADMIT Obstetrics & Gynecology; ATTEND Obstetrics & Gynecology
PROC: 10E0XZZ Delivery of Products of Conception, External Approach (ICD-10-PCS; principal; 2017-03-28)
PROC: 00HU33Z Insertion of Infusion Device into Spinal Canal, Percutaneous Approach (ICD-10-PCS; 2017-03-28)
PROC: 3E0R3BZ Introduction of Anesthetic Agent into Spinal Canal, Percutaneous Approach (ICD-10-PCS; 2017-03-28)
DX: O42.92 Full-term premature rupture of membranes, unspecified as to length of time between rupture and onset of labor (principal); Z68.43 Body mass index [BMI] 50.0-59.9, adult; Z37.0 Single live birth; Z3A.37 37 weeks gestation of pregnancy; Z91.09 Other allergy status, other than to drugs and biological substances; O99.344 Other mental disorders complicating childbirth; F41.8 Other specified anxiety disorders; E66.9 Obesity, unspecified; Z79.899 Other long term (current) drug therapy
CPT/HCPCS: 36415; 59409; 85025; 86850; 86900; 86901; A9270-GY; J2590; J3010; J7120

== ENCOUNTER 2017-11-10 16:22 | Emergency (ER) | payer MEDICAID, OTHER ==
[2017-11-10 16:34] VITALS: BP 112/76
--- NOTE | 2017-11-10 17:07 | EDM.PDOC ---
ED HPI GENERAL MEDICAL PROBLEM - General Chief Complaint: Respiratory Problem Stated Complaint: SHORTNESS OF BREATH/LEFT SHOULDER PAIN Time Seen by Provider: 11/10/17 16:35 Source of Information: Reports: Patient, RN Notes Reviewed - History of Present Illness INITIAL COMMENTS - FREE TEXT/NARRATIVE: 22 year old female with onset of L shoulder, ant chest disocomfort 2 1/2 days ago. Was to walk in clinic yesterday, started on meloxicam, flexeril, not helping. Continued pain with deep breathing, motion of trunk and arm and even with motion of her neck. Has chronic cough from smoking. Non prod. No fall or known injury but does have a 20 lb chile and a 30 lb child, lifting them frequently. Left Shoulder Pain Score (Numeric/FACES): 7 - Related Data Allergies Allergy/AdvReac Type Severity Reaction Status Date / Time adhesive Allergy Blisters Verified 03/07/17 18:37 BANDAIDES Allergy Severe Burning Uncoded 03/07/17 18:37 Home Meds: Home Meds Citalopram [Celexa] 20 mg PO DAILY 03/27/17 [History] Past Medical History - Past Health History Medical/Surgical History: Denies Medical/Surgical History HEENT History: Reports: Hard of Hearing, Other (See Below) Other HEENT History: right ear drum ruptured. Cardiovascular History: Reports: None Respiratory History: Reports: None Gastrointestinal History: Reports: GERD [employer] History: Reports: Other OB/BYN History: vaginal delliveries Psychiatric History: Reports: Anxiety, Depression - Past Surgical History HEENT Surgical History: Reports: Oral Surgery - History Comment History Comment: celexa- but hasn't had in 1-2 weeks Social & Family History - Family History Family Medical History: Noncontributory - Tobacco Use Smoking Status *Q: Current Every Day Smoker Years of Tobacco use: 2 Packs/Tins Daily: 0.5 - Caffeine Use Caffeine Use: Reports: Energy Drinks Other Caffeine Use: 1 drink per day of coffee or redbull - Recreational Drug Use Recreational Drug Use: No ED ROS GENERAL - Review of Systems Review Of Systems: See Below Constitutional: Denies: Fever, Chills, Diaphoresis HEENT: Reports: No Symptoms Respiratory: Reports: Pleuritic Chest Pain. Denies: Shortness of Breath Cardiovascular: Reports: Chest Pain GI/Abdominal: Denies: Abdominal Pain, Nausea, Vomiting Musculoskeletal: Reports: Shoulder Pain Skin: Reports: No Symptoms Neurological: Denies: Numbness, Tingling, Weakness ED EXAM, GENERAL - Physical Exam Exam: See Below General Appearance: Alert, No Apparent Distress Throat/Mouth: Normal Inspection Head: Atraumatic Neck: Supple, Full Range of Motion Respiratory/Chest: No Respiratory Distress, Normal Breath Sounds, Other (there is tenderness of the L upper ant chest below the L shoulder, L lower ant chest, L sternal border). No: Rhonchi, Wheezing Cardiovascular: Regular Rate, Rhythm GI/Abdominal: Soft, Non-Tender. No: Guarding Back Exam: Normal Inspection. No: Paraspinal Tenderness, Vertebral Tenderness Extremities: Other (tender L shoulder). No: Joint Swelling Neurological: Alert, Oriented, No Motor/Sensory Deficits Skin Exam: Warm, Dry, Normal Color Course - Vital Signs Last Recorded V/S: Last Vital Signs Temp 98.9 F 11/10/17 16:33 Pulse 93 11/10/17 16:33 Resp 20 11/10/17 16:33 BP 112/76 11/10/17 16:33 Pulse Ox 99 11/10/17 16:33 - Orders/Labs/Meds Orders: Active Orders 24 hr Category Date Time Status EKG 12 Lead [EKG Documentation Completion] [RC] STAT Care 11/10/17 17:42 Active Chest 1V Frontal [CR] Stat Exams 11/10/17 16:59 Taken Meds: Medications Discontinued Medications Generic Name Dose Route Start Last Admin Trade Name Freq PRN Reason Stop Dose Admin Hydrocodone Bitart/Acetaminophen 1 tab 11/10/17 18:12 [place] 325-5 Mg PO 11/10/17 18:13 ONETIME ONE - Re-Assessments/Exams Free Text/Narrative Re-Assessment/Exam: 11/10/17 18:18 CXR, EKG nl, NSR, no ectopy, sats 99 to 100, no apparent resp. distress while here in the ED, significant chest wall tenderness as documented, discharge instr. as documented. Departure - Departure Time of Disposition: 18:13 Disposition: Home, Self-Care 01 Condition: Fair Clinical Impression: Chest wall pain - Discharge Information Referrals: PCP,None [Primary Care Provider] - Forms: ED Department Discharge Additional Instructions: continue the meloxicam, take as prescribed on a regular basis to get both the pain and antiinflamatory effect, you may take tylenol in between doses for extra pain relief or hydrocodone if needed for severe pain, stop the flexeril. Follow up clinic in 2 to 3 days if pain not improving or resolving as expected, return to ED as needed is symptoms worsening in any way. - My Orders Last 24 Hours: My Active Orders 11/10/17 16:59 Chest 1V Frontal [CR] Stat 11/10/17 17:42 EKG 12 Lead [EKG Documentation Completion] [RC] STAT - Assessment/Plan Last 24 Hours: My Active Orders 11/10/17 16:59 Chest 1V Frontal [CR] Stat 11/10/17 17:42 EKG 12 Lead [EKG Documentation Completion] [RC] STAT
[2017-11-10] MEDS ORDERED: Acetaminophen/HYDROcodone 325-5 MG Tab PO ONE (18:12)
--- NOTE | 2017-11-11 11:58 | CR ---
Chest: Portable view of the chest was obtained. Comparison: No prior chest x-ray. Heart size and mediastinum are within normal limits for portable technique. Lungs are clear. Bony structures are grossly intact. Impression: 1. Nothing acute is appreciated on portable chest x-ray. Diagnostic code #1
== END 2017-11-10 18:24 | disposition home or self-care (01) ==
LOC: JD.ED 16:22
DX: R07.89 Other chest pain (principal); F17.210 Nicotine dependence, cigarettes, uncomplicated; Z91.048 Other nonmedicinal substance allergy status; Z79.899 Other long term (current) drug therapy
CPT/HCPCS: 71045; 93005; 99285; A9270; 93010; 99283-25